=== PATIENT | female | born 1975 | race Caucasian/White ===

== ENCOUNTER → 2017-11-28 | Outpatient (CLI) | payer BC ==
[~2017-11-28] MED LIST: COLACE 100100 MG/CAP PO; FLAXSEED OIL1 CAP PO; MULTIPLE VITAMI1 TAB PO; NATURAL IRON65 MG PO; SEASONIQUE1 TAB PO; VTAMINC250TA PO
== END ==
LOC: MC.RAD 08:40
DX: Z12.31 Encounter for screening mammogram for malignant neoplasm of breast (principal); N63.11 Unspecified lump in the right breast, upper outer quadrant; N63.24 Unspecified lump in the left breast, lower inner quadrant

== ENCOUNTER → 2017-11-30 | Outpatient (CLI) | payer BC ==
[~2017-11-30] VITALS: Ht 163.8 cm; Wt 101.4 kg
[2017-11-30 11:56] VITALS: BP 112/82; PULSE 56
== END ==
LOC: LIGHT 08:26
DX: E88.81 Metabolic syndrome and other insulin resistance (principal); E16.9 Disorder of pancreatic internal secretion, unspecified; E78.5 Hyperlipidemia, unspecified; E66.9 Obesity, unspecified; Z68.37 Body mass index [BMI] 37.0-37.9, adult; Z71.3 Dietary counseling and surveillance
CPT/HCPCS: G0463

== ENCOUNTER → 2017-12-01 | Outpatient (CLI) | payer BC | LOC: MC.RAD 09:30 | DX: N63.11 Unspecified lump in the right breast, upper outer quadrant (principal) ==

== ENCOUNTER → 2017-12-27 | Outpatient (CLI) | payer BC | LOC: BHSO 08:44 | DX: Z01.818 Encounter for other preprocedural examination (principal) ==

== ENCOUNTER → 2018-01-04 | Outpatient (CLI) | payer BC ==
[~2018-01-04] VITALS: Ht 163.8 cm; Wt 99.8 kg
[2018-01-04 15:14] VITALS: BP 126/80; PULSE 72
== END ==
LOC: LIGHT 11:44
DX: E88.81 Metabolic syndrome and other insulin resistance (principal); E16.9 Disorder of pancreatic internal secretion, unspecified; E78.5 Hyperlipidemia, unspecified; E66.9 Obesity, unspecified; Z68.37 Body mass index [BMI] 37.0-37.9, adult; Z71.3 Dietary counseling and surveillance
CPT/HCPCS: G0463

== ENCOUNTER 2018-12-24 08:15 | Outpatient (RCR) | payer BC ==
[~2018-12-24 08:15] MED LIST changes: +D3-5050000 IU PO
== END 2019-02-27 | disposition home or self-care (01) ==
LOC: WSPT
DX: R60.0 Localized edema (principal)

== ENCOUNTER 2019-03-05 13:00 | Outpatient (RCR) | payer BC | END 2019-03-22 13:36 | disposition home or self-care (01) | LOC: WSPT 13:00 | DX: R60.0 Localized edema (principal) ==